=== PATIENT | female | born 1945 | race Caucasian/White ===

== ENCOUNTER 2022-06-19 19:06 | Emergency (ER) | payer OTHER, MEDICARE ==
[2022-06-19 20:09] LABS: BASOPHIL 0.1 % (0-2); EOSINOPHIL 0 % (0-7); HCT 36.4 % (37.0-47.0); HGB 12.2 g/dl (12.5-16.0); LYMPHOCYTE 6.9 % (15-48); MCH 30.2 pg (25.0-31.0); MCHC 33.5 g/dL (32.0-36.0); MCV 90.1 fL (78.0-100.0); NEUTROPHIL 88.5 % (41-80); NRBC 0; PLT 274 K/uL (150-400); RBC 4.04 M/uL (4.20-5.40); RDW 12.8 % (11.5-14.0); WBC 14.3 K/uL (4.0-10.5)
[2022-06-19 20:16] LABS: INR 0.91 (0.9-1.2); PTT 24.6 SECONDS (24.9-34.6)
[2022-06-19 20:27] LABS: ALBUMIN 3.7 g/dL (3.4-5.0); BILIRUBIN - TOTAL 0.4 mg/dL (0.2-1.0); BUN/CREAT RATIO (CALC) 38.4 RATIO; CREATININE 1.38 mg/dL (0.51-0.95); GLOBULIN (CALCULATION) 3.3 g/dL; POTASSIUM 3.7 mmol/L (3.5-5.1)
[2022-06-19] MEDS ORDERED: AMOX TR-K CLV1 EAC4 PO (21:01)
== END 2022-06-19 21:34 | disposition home or self-care (01) ==
LOC: FER 19:06
PROVIDERS: Emergency Medicine
DX: S00.03XA Contusion of scalp, initial encounter (principal); S09.90XA Unspecified injury of head, initial encounter; U07.1 COVID-19; I10 Essential (primary) hypertension; Z88.5 Allergy status to narcotic agent; W01.0XXA Fall on same level from slipping, tripping and stumbling without subsequent striking against object, initial encounter; Y92.009 Unspecified place in unspecified non-institutional (private) residence as the place of occurrence of the external cause
CPT/HCPCS: 36415; 70450; 71045; 72125; 80053; 84484; 85025; 85610; 85730; 93005; J7030